=== PATIENT | female | born 1990 | race American Indian/Alaskan Native ===

== ENCOUNTER 2016-08-15 18:23 | Emergency (ER) | payer OTHER ==
[2016-08-15 18:23] VITALS: BMI 41.1
[2016-08-15 18:30] VITALS: TEMP 98.5
[2016-08-15 19:06] LABS: SQUAMOUS EPITHIAL 9 /hpf (0-5); URINE AMORPHOUS SEDIMENT FEW /ul (<OCC); URINE BACTERIA FEW (<OCC); URINE BILIRUBIN NEGATIVE (NEGATIVE); URINE BLOOD NEGATIVE (NEGATIVE); URINE CLARITY Hazy (Clear); URINE COLOR Yellow (YELLOW); URINE GLUCOSE (UA) NORMAL (Normal); URINE LEUKOCYTE ESTERASE TRACE Leu/uL (Negative); URINE NITRATE POSITIVE (NEGATIVE); URINE PROTEIN NEGATIVE (NEGATIVE); URINE UROBILINOGEN NORMAL mg/dL (0.2-1.0)
--- NOTE | 2016-08-15 19:11 | C.PDOC ---
History Of Present Illness 25 yr old female presents to the ER with complaints of frequent urination for the past 1 week. Patient reports she is 8 weeks , had a ultrasound 2 weeks ago to confirm a IUP. Denies fever, nausea, vomiting, abdominal pain, diarrhea, dysuria, vaginal discharge, vaginal bleeding or back pain. Time Seen by Provider: 08/15/16 18:31 Chief Complaint (Nursing): Female Genitourinary History Per: Patient History/Exam Limitations: no limitations Onset/Duration Of Symptoms: Days (1 week) Past Medical History Reviewed: Historical Data, Nursing Documentation, Vital Signs Vital Signs: Last Vital Signs Temp 98.5 F 08/15/16 18:27 Pulse 76 08/15/16 18:27 Resp 20 08/15/16 18:27 BP 128/74 08/15/16 18:27 Pulse Ox 100 08/15/16 19:11 Family History: States: No Known Family Hx - Social History Hx Tobacco Use: No Hx Alcohol Use: Yes Hx Substance Use: No - Immunization History Hx Tetanus Toxoid Vaccination: No Hx Influenza Vaccination: No Hx Pneumococcal Vaccination: No Review Of Systems Except As Marked, All Systems Reviewed And Found Negative. Constitutional: Negative for: Fever Gastrointestinal: Negative for: Nausea, Vomiting, Abdominal Pain, Diarrhea Genitourinary: Positive for: Frequency (Urination ). Negative for: Dysuria, Vaginal Discharge, Vaginal Bleeding Musculoskeletal: Negative for: Back Pain Physical Exam - Physical Exam Appears: Non-toxic, No Acute Distress Skin: Warm, Dry, No Rash Head: Atraumatic, Normacephalic Eye(s): bilateral: Normal Inspection, PERRL, EOMI Oral Mucosa: Moist Chest: Symmetrical, No Tenderness Cardiovascular: Rhythm Regular, No Murmur Respiratory: Normal Breath Sounds, No Rales, No Rhonchi, No Stridor, No Wheezing Gastrointestinal/Abdominal: Normal Exam, Soft, No Tenderness, No Guarding, No Rebound Back: Normal Inspection, No CVA Tenderness, No Vertebral Tenderness Extremity: Normal ROM, No Tenderness, No Swelling Neurological/Psych: Oriented x3, Normal Speech, Normal Motor ED Course And Treatment O2 Sat by Pulse Oximetry: 100 Medical Decision Making Medical Decision Makin yr old female is 8 weeks , presents to the ER with complaints of frequent urination for the past 1 week. Denies abdominal pain or vaginal bleeding. PLAN: * POC * Urinalysis * Urine cx UA results show (+) UTI, urine cx sent. UA results d/w the pt in great detail. Pt medicated with macrobid po. Pt given Rx for macrobid, was advised to f/u with OB in 1-2 days without fail for re-evaluation, instructed to return to the ER at any time for any new or worsening symptoms. Pt verbalize understanding of instructions, given the opportunity to ask any questions. Disposition Counseled Patient/Family Regarding: Studies Performed, Diagnosis, Need For Followup, Rx Given - Disposition Disposition: HOME/ ROUTINE Disposition Time: 19:28 Condition: STABLE Prescriptions: Nitrofurantoin Macrocrystals [Macrobid] 100 mg PO BID #20 cap Instructions: Urinary Tract Infection in Women (ED) Forms: Work/School/Gym Excuse Print Language: NORWEGI[place] - Clinical Impression Clinical Impression: UTI (urinary tract infection) - PA / SHORT STORY WRITER / Resident Statement MD/DO has reviewed & agrees with the documentation as recorded. - Scribe Statement The provider has reviewed the documentation as recorded by the Scribe Cayla Shepherd All medical record entries made by the Scribasiya were at my direction and personally dictated by me. I have reviewed the chart and agree that the record accurately reflects my personal performance of the history, physical exam, medical decision making, and the department course for this patient. I have also personally directed, reviewed, and agree with the discharge instructions and disposition.
[2016-08-15 19:53] VITALS: BP 121/82; PULSE 82; RESP 16; O2SAT 98
== END 2016-08-15 19:52 | disposition home or self-care (01) ==
LOC: C.ER 18:23
DX: O23.41 Unspecified infection of urinary tract in pregnancy, first trimester (principal); Z3A.08 8 weeks gestation of pregnancy